=== PATIENT | female | born 1955 | race Caucasian/White ===

== ENCOUNTER 2020-11-08 07:27 | Day surgery (SDC) | payer BC ==
[2020-11-08] MEDS ORDERED: NA CHLORIDE 0.9% 1,000 ML ONE (07:51)
[2020-11-08] MEDS ORDERED: LIDOCAINE 1% W/EPI 1:100,000 MDV 20 ML VIAL ONE (07:56)
[2020-11-08 08:21] LABS: Absolute Lymphocytes (CBC) 1.6 K/uL (0.7-4.9); Basophils % 0.7 % (0-1.3); Hematocrit 39.1 % (36.0-45.0); Lymphocytes % 20.7 % (15.3-44.8); MPV 8.1 fL (7.6-11.3); RBC Red Blood Cell Count 4.42 M/uL (3.86-4.86)
[2020-11-08 08:23] LABS: Potassium 4.1 mmol/L (3.5-5.1)
[2020-11-08] MEDS ORDERED: MIDAZOLAM HCL 2 MG/2 ML INJ ONE (08:52)
[2020-11-08] MEDS ORDERED: FENTANYL CITR 100 MCG/2 ML ONE (08:52)
[2020-11-08] MEDS ORDERED: LIDOCAINE 1% MPF 2 ML AMPULE ONE (08:52)
[2020-11-08] MEDS ORDERED: propofoL 200 MG/20 ML VIAL IV ONE (08:52)
[2020-11-08] MEDS ORDERED: EPHEDRINE SULF 50 MG/ML VIAL ONE (09:38)
[2020-11-08] MEDS ORDERED: KETOROLAC 30 MG/ML INJ ONE (09:51)
[2020-11-08] MEDS: LABETALOL 20 MG/4ML SYRINGE IV ONE ×2 (09:57→10:10)
[2020-11-08] MEDS ORDERED: TRAMADOL HCL 50 MG TAB PO ONE (11:10)
[2020-11-08 11:14] VITALS: BP 165/74; TEMP 96.8; O2SAT 97
[2020-11-08] MEDS ORDERED: TRAMADOL HCL 50 MG TAB ONE (11:25)
--- NOTE | 2020-11-08 12:16 | P.BOP ---
Preoperative diagnosis: melanoma in situ, nose Postoperative diagnosis: same Primary procedure: WLE Secondary procedure: Allograft director of placement: NONE,NONE Estimated blood loss: <5ml Specimen: nose, 15 x 25 mm, suture at 12 oclock/superior (permanent only) Findings: 15 x 25 mm full thickness skin/SQ fat defect Anesthesia: General Complications: None Fluids & blood products: 800ml Transferred to: Recovery Room Condition: Good
--- NOTE | 2020-11-08 13:19 | OP ---
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 Postoperative Diagnosis: Melanoma in situ of the nose. Procedures Performed: Wide local excision of the nose with final defect 15 x 25 mm and application o f TheraSkin allograft. Indication For Procedure: Ms Maciel is a 65-year-old who presented with a previous shave biopsy perf ormed by a school admissions representative indicating melanoma in situ of the nose. She presented to the ENT clinic fo r further evaluation and definitive treatment of the lesion. I had a detailed discussion with the ze velasco regarding the diagnosis including the potential for an invasive melanoma with the associated ne ed for a more extensive surgery. After carefully considering all the options, we decided to proceed with a wide local excision using a 5 mm gross margin as typically recommended for melanoma in situ fo llowed by application of an allograft for defect closure. The patient expressed understanding that i f an invasive melanoma is found, that additional surgery requiring wider margin may be considered. W e also discussed more complex reconstruction methods including a full-thickness skin graft for parame kentrell forehead flap. Due to the uncertainty and possible need for additional excision, a plan for a c omplex reconstructive procedures will be delayed until final treatment and pathologic results can be reviewed. Estimated Blood Loss: Less than 5 mL. Description Of Procedure In Detail: The patient was brought to the operating room. She was placed u nder general anesthesia via an LMA. The nose was cleaned with alcohol and photo documentation of the surgical site was collected. The nose was injected with 1% lidocaine with epinephrine and a total o f 3 mL were used. The face was then prepped with Betadine and draped in the standard sterile fashion . The Betadine was carefully cleaned from the nose in order to provide optimal visualization and martha ign of the incision. The patient was noted to have a small scar in the midportion just right of the dorsum from the prior biopsy. There was a second pigmented lesion several millimeters inferior, whic h was about 3 mm in diameter without gross or visible ulceration. The incision was designed to encom pass both of these areas as the primary lesion using a measured 5 mm margin. Once the incision was d esigned and drawn with surgical pen, a 15 blade scalpel was used to incise full-thickness through the skin and the specimen was elevated sharply from the underlying tissues. The specimen included a sig nificant thickness of subcutaneous tissue. The specimen was marked with a suture at the superior mos t aspect indicating 12 o'clock and was sent to pathology as a permanent section. Frozen section was not indicated due to the nature of the pathology and difficulty in assessing margin status of melanom a on frozen. The surgical bed was examined and hemostasis was achieved using monopolar electrocauter y. The TheraSkin was then thawed and prepared according to marine gear keeper's instructions. A 2 inch x 3 inch size was selected. The surgical defect was measured and was an oval 25 x 15 mm encompassing t he right nasal sidewall and extending to the right nasal tip, but not involving the alar rim. The [facility] code 102TSL, [id number], expiration date April 24. The TheraSkin was trimmed to t he appropriate size and was placed over the surgical defect. The graft was then secured in a 6-point fashion using 3-0 silk sutures. The ends of the suture were left long to allow for application of a bolster. A large Xeroform was conformed to the appropriate size and applied to the skin graft. The long ends of the suture were then used to secure the bolster to the site. The area was cleaned and dried, and inspected. There was no evidence of any bleeding. The bolster appeared to be firmly in p lace. The patient was then returned to care of anesthesia for awakening and extubation in the operat ing room, which proceeded without difficulty. Complications: None. Disposition: The patient is given instructions regarding wound care and will be discharged home late r today. A prescription for 3 days worth of tramadol is sent electronically for the patient in case of pain. The patient will return to Dr. Vazquez's office in 10 days for removal of the bolster. ALECIA/JUAN Voice ID: [id number] Report ID: [id number]
== END 2020-11-08 11:40 | disposition home or self-care (01) ==
LOC: OR 07:27
PROVIDERS: ATTEND Otolaryngology
PROC: 0HB1XZZ Excision of Face Skin, External Approach (ICD-10-PCS; principal; 2020-11-08 09:15)
DX: D03.39 Melanoma in situ of other parts of face (principal); Z20.822 Contact with and (suspected) exposure to COVID-19
CPT/HCPCS: 11646; 15275; 85025; 80048; 36415; 82947 ×2; 88305; U0002; J2704; J2250; J3010; J2001; J7030